=== PATIENT | female | born 1970 | race Caucasian/White ===

== ENCOUNTER 2019-06-21 07:30 | Day surgery (SDC) | payer OTHER ==
[~2019-06-21 07:30] MED LIST: FAMOTIDINE 20MG TABLET PO ONE; MECLIZINE 25 MG TABLET PO ONE; METOCLOPRAMIDE 10 MG TABLET PO ONE
[2019-06-21] MEDS ORDERED: LIDOCAINE 2% MDV (20MG/ML) 20ML VIAL IV ONE (07:31)
[2019-06-21] MEDS ORDERED: ONDANSETRON HCL IV 4 MG/2 ML VIAL IVP ONE (07:31)
[2019-06-21] MEDS ORDERED: MIDAZOLAM HCL 2MG/2ML VIAL IV ONE (07:31)
[2019-06-21] MEDS ORDERED: PROPOFOL 10 MG/ML VIAL IV ONE (07:31)
[2019-06-21] MEDS ORDERED: FENTANYL PF 100MCG/2ML VIAL IV ONE (07:31)
[2019-06-21] MEDS ORDERED: RINGERS SOLUTION,LACTATED 1,000 ML IV ONE (08:20)
[2019-06-21] MEDS ORDERED: LIDOCAINE 1% W/EPI 1:100,000 MDV 20 ML VIAL SQ ONE (08:50)
[2019-06-21] MEDS ORDERED: BUPIVACAINE 0.5% W/EPI MPF 30 ML VIAL SQ ONE (08:50)
[2019-06-21] MEDS ORDERED: DEXAMETHASONE PRESERVATIVE FREE 10MG/ML VIAL IM ONE (08:50)
--- NOTE | 2019-06-22 09:38 | Operative Note - [place] ---
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 OPERATION: RADIOFREQUENCY RHIZOTOMY RIGHT CERVICAL FACETS C4-C5, C5-C6, AND C6-C7. SURGEON: Derrell Smyth D.O. ANESTHESIA: Local sedation. ANESTHESIA PROVIDER: Alvaro Miller CRNA INDICATION: This patient presents with right sided neck and shoulder pain. Diagnostic studies do show diffuse multiple level spondylosis. A facet series and previous rhizotomy 75-85% pain control. Examination confirms ten cervical spine right of midline. Range of motion does produce pain to the neck with extension. Current pain level 0-10 is an 8. PROCEDURE: Intravenous line, vital sign monitoring, IV sedation, prepped and draped, sterile technique. With the patient prone, sterile prep, sterile technique, imaging for guidance, local for infiltration. The cervical facets at C4-C5, C5-C6, and C6-C7 marked, infiltrated, 20-gauge rhizotomy cannula positioned. Stimulation trial was conducted. Rhizotomy burn performed, 80 degrees, 90 seconds along with antiinflammatory into the sites. Topical antibiotic, sterile dressing was applied. Will monitor and evaluate. JOB NUMBER: [id number] MTDD
== END 2019-06-21 09:37 | disposition home or self-care (01) ==
LOC: SUR 07:30
PROVIDERS: ATTEND Pain Medicine Interventional Pain Medicine
DX: M47.812 Spondylosis without myelopathy or radiculopathy, cervical region (principal); I10 Essential (primary) hypertension; R53.82 Chronic fatigue, unspecified; J45.909 Unspecified asthma, uncomplicated; K21.9 Gastro-esophageal reflux disease without esophagitis
CPT/HCPCS: 64633; 64634 ×2; 01936; J2405; J1100; J3010; J7120